=== PATIENT | male | born 1960 | race Caucasian/White ===

== ENCOUNTER 2018-10-07 21:08 | Inpatient (IN) | payer OTHER ==
[2018-10-07] MEDS ORDERED: DOCUSATE SODIUM 100 MG CAP PO (23:00)
[2018-10-07] MEDS ORDERED: BISACODYL (EC) 5 MG TAB PO (23:00)
[2018-10-07] MEDS ORDERED: ONDANSETRON 4 MG TAB PO (23:00)
[2018-10-07] MEDS ORDERED: NACL 0.9% 3 ML SYG IV (23:00)
[2018-10-07] MEDS ORDERED: ACETAMINOPHEN 325 MG TAB PO (23:00)
[2018-10-07] MEDS ORDERED: HYDROCODONE/APAP (5/325) TAB PO (23:00)
[2018-10-07 23:14] LABS: ADD MAN DIFF? NO
[2018-10-07 23:19] LABS: BASOPHILS % 0.5 % (0.0-2.0); EOSINOPHILS # 0.5 10^3/ul (0.0-0.5); HEMOGLOBIN 10.1 g/dl (14.0-18.0); LYMPHOCYTES # 1.8 10^3/ul (0.8-2.9); LYMPHOCYTES % 20.6 % (15.0-51.0); MEAN CORPUSCULAR HEMOGLOBIN 30.7 pg (29.0-33.0); MEAN CORPUSCULAR HGB CONC 34.8 g/dl (32.0-37.0); MEAN CORPUSCULAR VOLUME 88.1 fl (82.0-101.0); MEAN PLATELET VOLUME 10.2 fl (7.4-10.4); MONOCYTE # 0.6 10^3/ul (0.3-0.9); NEUTROPHIL # 5.6 10^3/ul (1.6-7.5); NEUTROPHILS % 65.5 % (39.0-77.0); PLATELET COUNT 196 10^3/UL (140-415); RED BLOOD COUNT 3.29 10^6/ul (4.70-6.10); RED CELL DISTRIBUTION WIDTH 13.4 % (11.5-14.5)
[2018-10-07 23:19] LABS: WHITE BLOOD COUNT 8.5 10^3/ul (4.8-10.8)
[2018-10-07] MEDS: NIFEdipine (XL) 60 MG TAB PO (23:24)
[2018-10-07 23:35] LABS: ALANINE AMINOTRANSFERASE 7 IU/L (13-69); ALBUMIN 4.6 g/dl (3.3-4.9); ALBUMIN/GLOBULIN RATIO 1.12; ALKALINE PHOSPHATASE 75 IU/L (42-121); ANION GAP 16 (5-13); ASPARTATE AMINO TRANSFERASE 13 IU/L (15-46); BILIRUBIN,INDIRECT 0.1 mg/dl (0-1.1); BILIRUBIN,TOTAL 0.1 mg/dl (0.2-1.3); BLOOD UREA NITROGEN 103 mg/dl (7-20); CARBON DIOXIDE 17 mmol/L (21-31); CHLORIDE 111 mmol/L (97-110); CREATININE 9.85 mg/dl (0.61-1.24); Estimated GFR 5 mL/min (>60); GLUCOSE 102 mg/dl (70-220); POTASSIUM 4.6 mmol/L (3.5-5.1); SODIUM 144 mmol/L (135-144); TOTAL PROTEIN 8.7 g/dl (6.1-8.1)
[2018-10-07 23:40] LABS: OSMOLALITY 329 mOsm/kg (280-295)
[2018-10-07 23:56] LABS: ALBUMIN 4.6 g/dl (3.3-4.9); ANION GAP 15 (5-13); BLOOD UREA NITROGEN 104 mg/dl (7-20); CARBON DIOXIDE 17 mmol/L (21-31); CHLORIDE 112 mmol/L (97-110); CREATININE 9.69 mg/dl (0.61-1.24); GLUCOSE 103 mg/dl (70-220); PHOSPHORUS 6.5 mg/dl (2.5-4.9); POTASSIUM 4.5 mmol/L (3.5-5.1); SODIUM 144 mmol/L (135-144)
[2018-10-08 05:45] LABS: ADD MAN DIFF? NO
[2018-10-08 05:52] LABS: BASOPHILS % 0.5 % (0.0-2.0); EOSINOPHILS # 0.7 10^3/ul (0.0-0.5); EOSINOPHILS % 9.2 % (0.0-7.0); HEMATOCRIT 29.5 % (42.0-52.0); LYMPHOCYTES # 1.8 10^3/ul (0.8-2.9); LYMPHOCYTES % 23.6 % (15.0-51.0); MEAN CORPUSCULAR HEMOGLOBIN 30.4 pg (29.0-33.0); MEAN CORPUSCULAR HGB CONC 33.9 g/dl (32.0-37.0); MEAN CORPUSCULAR VOLUME 89.7 fl (82.0-101.0); MEAN PLATELET VOLUME 10.7 fl (7.4-10.4); MONOCYTE # 0.7 10^3/ul (0.3-0.9); MONOCYTES % 8.8 % (0.0-11.0); NEUTROPHIL # 4.3 10^3/ul (1.6-7.5); NEUTROPHILS % 57.6 % (39.0-77.0); PLATELET COUNT 206 10^3/UL (140-415); RED BLOOD COUNT 3.29 10^6/ul (4.70-6.10); RED CELL DISTRIBUTION WIDTH 13.4 % (11.5-14.5)
[2018-10-08 05:52] LABS: WHITE BLOOD COUNT 7.4 10^3/ul (4.8-10.8)
[2018-10-08 06:05] LABS: HEMOGLOBIN A1C 5.1 % (0-5.9)
[2018-10-08 06:22] LABS: ALANINE AMINOTRANSFERASE 10 IU/L (13-69); ALBUMIN 4.4 g/dl (3.3-4.9); ALBUMIN/GLOBULIN RATIO 1.18; ALKALINE PHOSPHATASE 70 IU/L (42-121); ANION GAP 15 (5-13); ASPARTATE AMINO TRANSFERASE 12 IU/L (15-46); BILIRUBIN,INDIRECT 0.1 mg/dl (0-1.1); BILIRUBIN,TOTAL 0.1 mg/dl (0.2-1.3); BLOOD UREA NITROGEN 102 mg/dl (7-20); CALCIUM 9.3 mg/dl (8.4-10.2); CARBON DIOXIDE 18 mmol/L (21-31); CHLORIDE 110 mmol/L (97-110); CHOL/HDL RATIO 3.3 RATIO; CHOLESTEROL 147 mg/dl (100-200); CREATININE 9.92 mg/dl (0.61-1.24); Estimated GFR 5 mL/min (>60); GLUCOSE 89 mg/dl (70-220); HDL CHOLESTEROL 44 mg/dl (28-71); LDL CHOLESTEROL,CALCULATED 80 mg/dl; POTASSIUM 4.5 mmol/L (3.5-5.1); SODIUM 143 mmol/L (135-144); TOTAL PROTEIN 8.1 g/dl (6.1-8.1); TRIGLYCERIDES 116 mg/dl (0-149)
[2018-10-08 06:44] LABS: HEPATITIS B SURFACE ANTIGEN NEGATIVE (NEGATIVE)
[2018-10-08 06:50] LABS: HEPATITIS B SURFACE ANTIBODY NEGATIVE (NEGATIVE)
[2018-10-08 07:01] LABS: HEPATITIS C VIRAL ANTIBODY NEGATIVE (NEGATIVE)
[2018-10-08 07:23] LABS: IRON 80 ug/dl (35-150)
[2018-10-08 07:32] LABS: % IRON SATURATION 30 % SAT (22-52); TOTAL IRON BINDING CAPACITY 269 ug/dl (241-421)
[2018-10-08] MEDS: CALCIUM ACETATE 667 MG CAP PO ×3 (09:03→18:27)
[2018-10-08] MEDS: NIFEdipine (XL) 60 MG TAB PO ×2 (09:03→20:59)
[2018-10-08] MEDS: CITRIC ACID/SODIUM CITRATE 15 ML CUP PO (09:04)
[2018-10-08] MEDS: FERROUS SULFATE (EC) 325 MG TAB PO ×3 (09:04→20:46)
[2018-10-08] MEDS: TAMSULOSIN (SR) 0.4 MG CAP PO (09:04)
[2018-10-08] MEDS: FINASTERIDE 5 MG TAB PO (09:05)
[2018-10-08] MEDS: CEFTRIAXONE 1 GM/50 ML (PMX) 50 ML IVPB (11:00)
[2018-10-08 12:17] LABS: FREE T4 (FREE THYROXINE) 1.31 ng/dl (0.64-1.79)
[2018-10-08 13:54] LABS: PROSTATE SPECIFIC ANTIGEN 23.7 ng/ml (0.0-4.0)
[2018-10-08 14:40] LABS: ADD UMIC YES; UR ASCORBIC ACID NEGATIVE (NEGATIVE); UR BACTERIA FEW /HPF (NONE SEEN); UR BILIRUBIN (Dip) NEGATIVE (NEGATIVE); UR BLOOD (Dip) 1+ mg/dL (NEGATIVE); UR CLARITY CLEAR (CLEAR); UR COLOR STRAW (YELLOW); UR GLUCOSE (Dip) NEGATIVE (NEGATIVE); UR KETONES (Dip) NEGATIVE (NEGATIVE); UR LEUKOCYTE ESTERASE (Dip) 1+ Leu/ul (NEGATIVE); UR MUCUS FEW /HPF (NONE SEEN); UR NITRITE (Dip) NEGATIVE (NEGATIVE); UR RBC 2 /HPF (0-5); UR SPECIFIC GRAVITY (Dip) 1.011 (1.003-1.030); UR TOTAL PROTEIN (Dip) NEGATIVE (NEGATIVE); UR UROBILINOGEN (Dip) NEGATIVE (NEGATIVE); UR WBC 16 /HPF (0-5)
[2018-10-08 15:00] LABS: CREATININE,URINE RANDOM 94.21 mg/dl (20-370)
[2018-10-08 15:04] LABS: CREATININE,URINE RANDOM 93.38 mg/dl (20-370)
[2018-10-08 15:04] LABS: SODIUM,URINE RANDOM 40 mmol/L (30-90)
[2018-10-08 15:41] LABS: OSMOLALITY,URINE 368 mOsm/kg (250-1200)
[2018-10-09 05:20] LABS: ADD MAN DIFF? NO
[2018-10-09 05:31] LABS: BASOPHIL # 0.1 10^3/ul (0.0-0.1); BASOPHILS % 0.6 % (0.0-2.0); EOSINOPHILS # 0.8 10^3/ul (0.0-0.5); EOSINOPHILS % 9.7 % (0.0-7.0); HEMATOCRIT 27.9 % (42.0-52.0); HEMOGLOBIN 10.1 g/dl (14.0-18.0); MEAN CORPUSCULAR HEMOGLOBIN 31.3 pg (29.0-33.0); MEAN CORPUSCULAR HGB CONC 36.2 g/dl (32.0-37.0); MEAN CORPUSCULAR VOLUME 86.4 fl (82.0-101.0); MEAN PLATELET VOLUME 10.5 fl (7.4-10.4); MONOCYTE # 0.7 10^3/ul (0.3-0.9); MONOCYTES % 7.8 % (0.0-11.0); NEUTROPHIL # 4.8 10^3/ul (1.6-7.5); NEUTROPHILS % 57.7 % (39.0-77.0); PLATELET COUNT 218 10^3/UL (140-415); RED BLOOD COUNT 3.23 10^6/ul (4.70-6.10); RED CELL DISTRIBUTION WIDTH 12.8 % (11.5-14.5)
[2018-10-09 05:31] LABS: WHITE BLOOD COUNT 8.3 10^3/ul (4.8-10.8)
[2018-10-09 06:06] LABS: ANION GAP 15 (5-13); BLOOD UREA NITROGEN 107 mg/dl (7-20); CALCIUM 9.2 mg/dl (8.4-10.2); CARBON DIOXIDE 17 mmol/L (21-31); CHLORIDE 107 mmol/L (97-110); Estimated GFR 5 mL/min (>60); GLUCOSE 97 mg/dl (70-220); MAGNESIUM 1.9 mg/dl (1.7-2.5); PHOSPHORUS 8.6 mg/dl (2.5-4.9); POTASSIUM 4.6 mmol/L (3.5-5.1); SODIUM 139 mmol/L (135-144)
[2018-10-09] MEDS: FERROUS SULFATE (EC) 325 MG TAB PO ×3 (08:32→20:28)
[2018-10-09] MEDS: TAMSULOSIN (SR) 0.4 MG CAP PO (08:32)
[2018-10-09] MEDS: CALCIUM ACETATE 667 MG CAP PO ×3 (08:33→18:25)
[2018-10-09] MEDS: CITRIC ACID/SODIUM CITRATE 15 ML CUP PO ×2 (08:37→20:28)
[2018-10-09] MEDS: NIFEdipine (XL) 60 MG TAB PO ×2 (08:39→20:32)
[2018-10-09] MEDS: FINASTERIDE 5 MG TAB PO (08:39)
[2018-10-09] MEDS: CEFTRIAXONE 1 GM/50 ML (PMX) 50 ML IVPB (09:41)
[2018-10-09 15:32] LABS: CREATININE, RANDOM URINE 90 mg/dL (20-320); MICROALBUMIN 3.1 mg/dL; MICROALBUMIN/CREATININE RATIO 34 (<30)
[2018-10-09 19:27] LABS: PSA, FREE 2.7 ng/mL
[2018-10-10 05:20] LABS: ADD MAN DIFF? NO
[2018-10-10 05:35] LABS: WHITE BLOOD COUNT 8.4 10^3/ul (4.8-10.8)
[2018-10-10 05:35] LABS: BASOPHILS % 0.5 % (0.0-2.0); EOSINOPHILS # 0.7 10^3/ul (0.0-0.5); EOSINOPHILS % 8.3 % (0.0-7.0); HEMATOCRIT 26.9 % (42.0-52.0); HEMOGLOBIN 9.7 g/dl (14.0-18.0); MEAN CORPUSCULAR HGB CONC 36.1 g/dl (32.0-37.0); MEAN CORPUSCULAR VOLUME 85.9 fl (82.0-101.0); MEAN PLATELET VOLUME 10.4 fl (7.4-10.4); MONOCYTE # 0.8 10^3/ul (0.3-0.9); MONOCYTES % 9.1 % (0.0-11.0); NEUTROPHIL # 4.9 10^3/ul (1.6-7.5); PLATELET COUNT 222 10^3/UL (140-415); RED BLOOD COUNT 3.13 10^6/ul (4.70-6.10); RED CELL DISTRIBUTION WIDTH 12.7 % (11.5-14.5)
[2018-10-10 05:46] LABS: ANION GAP 19 (5-13); BLOOD UREA NITROGEN 113 mg/dl (7-20); CALCIUM 9.4 mg/dl (8.4-10.2); CARBON DIOXIDE 18 mmol/L (21-31); CHLORIDE 102 mmol/L (97-110); CREATININE 10.01 mg/dl (0.61-1.24); Estimated GFR 5 mL/min (>60); GLUCOSE 99 mg/dl (70-220); PHOSPHORUS 8.5 mg/dl (2.5-4.9); POTASSIUM 4.1 mmol/L (3.5-5.1); SODIUM 139 mmol/L (135-144)
[2018-10-10] MEDS: FERROUS SULFATE (EC) 325 MG TAB PO ×3 (08:39→20:18)
[2018-10-10] MEDS: CEFTRIAXONE 1 GM/50 ML (PMX) 50 ML IVPB (08:39)
[2018-10-10] MEDS: TAMSULOSIN (SR) 0.4 MG CAP PO (08:39)
[2018-10-10] MEDS: FINASTERIDE 5 MG TAB PO (08:39)
[2018-10-10] MEDS: CITRIC ACID/SODIUM CITRATE 15 ML CUP PO ×2 (08:39→20:18)
[2018-10-10] MEDS: NIFEdipine (XL) 60 MG TAB PO ×2 (08:40→20:19)
[2018-10-10] MEDS: CALCIUM ACETATE 667 MG CAP PO ×3 (08:40→17:49)
[2018-10-10 09:17] LABS: PTH INTACT 256 pg/mL (14-64)
[2018-10-10] MEDS: EPOETIN 4000 UNITS/1 ML INJ (ESRD) SC (11:52)
[2018-10-10 12:08] LABS: PROTIME 15.3 Sec (11.9-14.9); PT RATIO 1.2
[2018-10-10] MEDS: SEVELAMER CARBONATE 800 MG TABLET PO ×2 (12:49→17:49)
[2018-10-11 05:20] LABS: ADD MAN DIFF? NO
[2018-10-11 05:25] LABS: BASOPHILS % 0.4 % (0.0-2.0); EOSINOPHILS # 0.6 10^3/ul (0.0-0.5); EOSINOPHILS % 8.6 % (0.0-7.0); HEMATOCRIT 25.9 % (42.0-52.0); HEMOGLOBIN 9.2 g/dl (14.0-18.0); LYMPHOCYTES # 1.8 10^3/ul (0.8-2.9); LYMPHOCYTES % 26.2 % (15.0-51.0); MEAN CORPUSCULAR HGB CONC 35.5 g/dl (32.0-37.0); MEAN CORPUSCULAR VOLUME 87.2 fl (82.0-101.0); MEAN PLATELET VOLUME 10.7 fl (7.4-10.4); MONOCYTE # 0.7 10^3/ul (0.3-0.9); MONOCYTES % 9.8 % (0.0-11.0); NEUTROPHIL # 3.8 10^3/ul (1.6-7.5); NEUTROPHILS % 54.9 % (39.0-77.0); PLATELET COUNT 211 10^3/UL (140-415); RED BLOOD COUNT 2.97 10^6/ul (4.70-6.10); RED CELL DISTRIBUTION WIDTH 12.8 % (11.5-14.5)
[2018-10-11 05:49] LABS: ANION GAP 15 (5-13); BLOOD UREA NITROGEN 115 mg/dl (7-20); CALCIUM 9.5 mg/dl (8.4-10.2); CARBON DIOXIDE 21 mmol/L (21-31); CHLORIDE 103 mmol/L (97-110); CREATININE 9.94 mg/dl (0.61-1.24); Estimated GFR 5 mL/min (>60); GLUCOSE 96 mg/dl (70-220); MAGNESIUM 2.1 mg/dl (1.7-2.5); PHOSPHORUS 7.4 mg/dl (2.5-4.9); SODIUM 139 mmol/L (135-144)
[2018-10-11] MEDS: SEVELAMER CARBONATE 800 MG TABLET PO ×4 (07:50→17:53)
[2018-10-11] MEDS: CALCIUM ACETATE 667 MG CAP PO ×4 (07:50→17:53)
[2018-10-11] MEDS: CITRIC ACID/SODIUM CITRATE 15 ML CUP PO ×2 (08:26→21:12)
[2018-10-11] MEDS: FINASTERIDE 5 MG TAB PO (08:27)
[2018-10-11] MEDS: TAMSULOSIN (SR) 0.4 MG CAP PO (08:27)
[2018-10-11] MEDS: CEFTRIAXONE 1 GM/50 ML (PMX) 50 ML IVPB (08:27)
[2018-10-11] MEDS: FERROUS SULFATE (EC) 325 MG TAB PO ×3 (08:27→21:11)
[2018-10-11] MEDS: NIFEdipine (XL) 60 MG TAB PO ×2 (08:27→21:11)
[2018-10-11] MEDS: CEFEPIME 1GM/50 ML (PMX) 50 ML IVPB (13:51)
[2018-10-11] MEDS ORDERED: NITROFURANTOIN (SR) 100 MG CAP PO (21:00)
[2018-10-12 05:29] LABS: ADD MAN DIFF? NO
[2018-10-12 05:34] LABS: WHITE BLOOD COUNT 7.8 10^3/ul (4.8-10.8)
[2018-10-12 05:34] LABS: BASOPHIL # 0.1 10^3/ul (0.0-0.1); BASOPHILS % 0.6 % (0.0-2.0); EOSINOPHILS # 0.7 10^3/ul (0.0-0.5); EOSINOPHILS % 8.5 % (0.0-7.0); HEMOGLOBIN 10.3 g/dl (14.0-18.0); LYMPHOCYTES # 1.9 10^3/ul (0.8-2.9); LYMPHOCYTES % 24.3 % (15.0-51.0); MEAN CORPUSCULAR HGB CONC 35.5 g/dl (32.0-37.0); MEAN CORPUSCULAR VOLUME 87.3 fl (82.0-101.0); MEAN PLATELET VOLUME 10.5 fl (7.4-10.4); MONOCYTE # 0.8 10^3/ul (0.3-0.9); MONOCYTES % 9.9 % (0.0-11.0); NEUTROPHIL # 4.4 10^3/ul (1.6-7.5); NEUTROPHILS % 56.4 % (39.0-77.0); PLATELET COUNT 235 10^3/UL (140-415); RED BLOOD COUNT 3.32 10^6/ul (4.70-6.10); RED CELL DISTRIBUTION WIDTH 12.8 % (11.5-14.5)
[2018-10-12 05:53] LABS: ANION GAP 14 (5-13); BLOOD UREA NITROGEN 110 mg/dl (7-20); CALCIUM 9.7 mg/dl (8.4-10.2); CARBON DIOXIDE 21 mmol/L (21-31); CHLORIDE 107 mmol/L (97-110); CREATININE 9.72 mg/dl (0.61-1.24); Estimated GFR 6 mL/min (>60); GLUCOSE 102 mg/dl (70-220); MAGNESIUM 2.2 mg/dl (1.7-2.5); PHOSPHORUS 6.8 mg/dl (2.5-4.9); POTASSIUM 4.4 mmol/L (3.5-5.1); SODIUM 142 mmol/L (135-144)
[2018-10-12] MEDS: FINASTERIDE 5 MG TAB PO (09:13)
[2018-10-12] MEDS: SEVELAMER CARBONATE 800 MG TABLET PO ×3 (09:13→18:20)
[2018-10-12] MEDS: NIFEdipine (XL) 60 MG TAB PO ×2 (09:14→21:02)
[2018-10-12] MEDS: CITRIC ACID/SODIUM CITRATE 15 ML CUP PO ×2 (09:14→21:01)
[2018-10-12] MEDS: FERROUS SULFATE (EC) 325 MG TAB PO ×3 (09:14→21:01)
[2018-10-12] MEDS: TAMSULOSIN (SR) 0.4 MG CAP PO ×2 (09:14→21:01)
[2018-10-12] MEDS: CALCIUM ACETATE 667 MG CAP PO ×2 (13:05→18:20)
[2018-10-12] MEDS: CEFEPIME 1GM/50 ML (PMX) 50 ML IVPB (13:18)
[2018-10-13] MEDS: CITRIC ACID/SODIUM CITRATE 15 ML CUP PO (09:02)
[2018-10-13] MEDS: CALCIUM ACETATE 667 MG CAP PO ×2 (09:03→12:46)
[2018-10-13] MEDS: NIFEdipine (XL) 60 MG TAB PO (09:03)
[2018-10-13] MEDS: FINASTERIDE 5 MG TAB PO (09:03)
[2018-10-13] MEDS: FERROUS SULFATE (EC) 325 MG TAB PO ×2 (09:03→12:46)
[2018-10-13] MEDS: TAMSULOSIN (SR) 0.4 MG CAP PO (09:04)
[2018-10-13] MEDS: SEVELAMER CARBONATE 800 MG TABLET PO ×2 (09:04→12:46)
[2018-10-13] MEDS: CEFEPIME 1GM/50 ML (PMX) 50 ML IVPB (12:46)
== END 2018-10-13 14:35 | disposition home or self-care (01) | DRG 683 ==
LOC: MS1 21:08
DX: N17.9 Acute kidney failure, unspecified (principal); I12.0 Hypertensive chronic kidney disease with stage 5 chronic kidney disease or end stage renal disease; N39.0 Urinary tract infection, site not specified; E87.2 Acidosis; N18.5 Chronic kidney disease, stage 5; D63.1 Anemia in chronic kidney disease; N40.1 Benign prostatic hyperplasia with lower urinary tract symptoms; R33.8 Other retention of urine; E03.9 Hypothyroidism, unspecified; B96.5 Pseudomonas (aeruginosa) (mallei) (pseudomallei) as the cause of diseases classified elsewhere
CPT/HCPCS: 71045; 76775; 76856; 80048; 80053; 80061; 80069; 81001; 81003; 82043; 82570; 82728; 83036; 83540; 83735; 83930; 83935; 83970; 84100; 84153; 84154; 84155; 84300; 84439; 84443; 85025; 85610; 86706; 86708; 86803; 87086; 87340